=== PATIENT | female | born 1960 | race Caucasian/White ===

== ENCOUNTER 2021-10-11 10:34 | Outpatient (CLI) | payer OTHER ==
--- NOTE | 2021-10-20 08:37 | Mammography Report ---
BILATERAL DIGITAL SCREENING MAMMOGRAM 3D/2D: 10/11/2021 CLINICAL: Routine screening. No prior exams were available for comparison. The tissue of both breasts is predominantly fatty. No significant masses, calcifications, or other findings are seen in either breast. IMPRESSION: NEGATIVE There is no mammographic evidence of malignancy. A 1 year screening mammogram is recommended. This exam was interpreted at Station ID: [id number]. NOTE: For mammograms, a report in lay terms will be sent to the patient. Approximately 15% of breast malignancies will not be visualized mammographically. In the management of a palpable breast mass, a negative mammogram must not discourage biopsy of a clinically suspicious lesion. Electronically Signed By: Rhiannon andrews/dinah:10/19/2021 08:53:49 ACR BI-RADS Category 1: Negative 3341F PARENCHYMAL PATTERN: (F) - The breast(s) demonstrate(s) diffuse fatty replacement. BI-RADS CATEGORY: (1) - 1 RECOMMENDATION: (ANNUAL) - Recommend routine annual screening mammography. [id number] 1 year screening LATERALITY: (B)
== END 2021-10-11 10:35 | disposition home or self-care (01) ==
LOC: DI.N 10:34
DX: Z12.31 Encounter for screening mammogram for malignant neoplasm of breast (principal)

== ENCOUNTER 2022-09-15 07:25 | Outpatient (CLI) | payer OTHER ==
--- NOTE | 2022-09-17 10:30 | MRI Report ---
PROCEDURE: LUMBAR SPINE WO INDICATIONS: LOW BACK PAIN TECHNIQUE: Noncontrast sagittal T1 spin echo and T2 fast echo, sagittal STIR, axial T2 fast spin echo through th e lumbar spine. Additional coronal T2 fast spin echo may be performed. COMPARISON: None. FINDINGS: Image quality: Excellent. Alignment and Curvature: There is mild levoconvex curvature of the lumbar spine. Grade 1 retrolisthes is of L1 on L2 is seen measuring 4 mm. To millimeter grade 1 retrolisthesis of L2 on L3. Bone Marrow: Marrow is of normal overall signal. No acute vertebral body compression fractures. Mo dic type II degenerative endplate changes are present. Small L5F-irlcuobincsc lesion in the T12 verte bral body on the left is most likely an atypical hemangioma. Typical hemangioma is seen in the L1 presley tebral body. Spinal Cord: Conus medullaris terminates at the L1-2 disc space level. Visualized cord demonstrates normal signal and size. Paraspinous Soft Tissues: No paravertebral masses. G6E-sapuxaksegnx cysts are seen in the liver and right kidney. There is grade 2 fatty infiltration of the paraspinous musculature. T12-L1: Mild loss of disc space height with no significant spinal canal stenosis or neuroforaminal n arrowing. L1-L2: Disc desiccation and severe loss of disc space height with grade 1 retrolisthesis of L1 on L2. Findings result in mild narrowing of the spinal canal as well as moderate right and mild left anjel ral foraminal narrowing. L2-L3: Disc desiccation and loss of disc space height with grade 1 retrolisthesis of L2 on L3, whi ch results in mild to moderate bilateral neural foraminal narrowing and mild spinal canal narrowing. L3-L4: No significant spinal canal stenosis or neuroforaminal narrowing. L4-L5: No significant spinal canal stenosis or neuroforaminal narrowing. L5-S1: Mild bilateral facet hypertrophy resulting in mild narrowing of the left neural foramen with out significant right neural foraminal narrowing or spinal canal stenosis. IMPRESSION: 1.Mild to moderate degenerative disc disease and facet hypertrophy as described in detail in the body of the report. Findings are worst at the L1-2 disc space level where there is moderate right and mil d left neural foraminal narrowing and mild spinal canal narrowing. 2.Grade 1 retrolisthesis of L1 on L2 and L2 on L3. Mild levoconvex curvature of the lumbar spine. 3.No high-grade spinal canal stenosis or high-grade neuroforaminal narrowing. Reviewed by: Elan Yap MD on 09/17/2022 10:29 AM PST Approved by: Elan Yap MD on 09/17/2022 10:29 AM PST Station ID: [id number]
== END 2022-09-15 07:26 | disposition home or self-care (01) ==
LOC: DI 07:25
PROVIDERS: ATTEND Family Medicine
DX: M47.26 Other spondylosis with radiculopathy, lumbar region (principal); M51.16 Intervertebral disc disorders with radiculopathy, lumbar region; M43.16 Spondylolisthesis, lumbar region; M48.061 Spinal stenosis, lumbar region without neurogenic claudication